=== PATIENT | female | born 1995 | race Caucasian/White ===

== ENCOUNTER 2017-07-14 20:46 | Emergency (ER) | payer OTHER ==
[2017-07-14] MEDS ORDERED: DIPHENHYDRAMINE HCL 50 MG CAPSULE PO ONE (21:43)
[2017-07-14] MEDS ORDERED: FAMOTIDINE 20 MG TABLET PO ONE (21:43)
[2017-07-14] MEDS ORDERED: METHYLPREDNISOLONE INJ 125 MG/2 ML SDV IM ONE (21:43)
--- NOTE | 2017-07-14 21:48 | ER Document Report ---
HPI - HPI Pain Level: 3 Notes: Patient is a 22-year-old female with a history of mental health disorders, asthma who presents to the ED complaining of a rash that started on her arms and legs this evening about a few hours ago. Patient is not sure what caused the rash. She has not eaten any new foods or taken new medications. Patient has not had any travel. Patient is wondering if she is allergic to 1 of the chemicals at work. Patient states that the rash is associated with some itching and soreness. Patient has not had any recent illness. She denies any drug allergies. No other concerns or complaints at this time. Denies any headache, fever, neck pain, changes in vision/speech/mentation/hearing, swelling of the lips/tongue/throat, drooling, hoarseness, URI, sore throat, chest pain, palpitations, syncope, cough, shortness of breath, wheeze, dyspnea, abdominal pain, nausea/vomiting/diarrhea, urinary retention, dysuria, hematuria , loss of control of bowel or bladder, numbness/tingling, muscle paralysis/ weakness, or rash. - ROS Systems Reviewed and Negative: Yes All other systems reviewed and negative - REPRODUCTIVE Reproductive: DENIES: : Past Medical History - Social History Smoking Status: Current Every Day Smoker Family History: None Pulmonary Medical History: Reports: Hx Asthma - as a child Psychiatric Medical History: Reports: Hx Depression Traumatic Medical History: Reports: Hx Fractures - forearm, collarbone - Immunizations Immunizations up to date: Yes Hx Diphtheria, Pertussis, Tetanus Vaccination: Yes Vertical Provider Document - CONSTITUTIONAL Agree With Documented VS: Yes Notes: PHYSICAL EXAMINATION: GENERAL: Well-appearing, well-nourished and in no acute distress. HEAD: Atraumatic, normocephalic. EYES: Pupils equal round and reactive to light, extraocular movements intact, sclera anicteric, conjunctiva are normal. ENT: Nares patent and without discharge. oropharynx clear without exudates. No tonsilar hypertrophy or erythema. Moist mucous membranes. NECK: Normal range of motion, supple without lymphadenopathy LUNGS: Breath sounds clear to auscultation bilaterally and equal. No wheezes rales or rhonchi. HEART: Regular rate and rhythm without murmurs, rubs, gallops. ABDOMEN: Soft, nontender, nondistended abdomen. No guarding, no rebound. No masses appreciated. Normal bowel sounds present. No CVA tenderness bilaterally. Musculoskeletal: FROM to passive/active. Strength 5+/5. Extremities: No cyanosis, clubbing, or edema b/l. Peripheral pulses 2+. Capillary refill less than 3 seconds. NEUROLOGICAL: normal speech, normal gait. Normal sensory, motor exams PSYCH: anxious SKIN: several maculopapular lesions to the arms/legs b/l, non-tender. No abscess , purulence, or discharge. Some areas appear as hives, but most are papular. No distinct pattern. - INFECTION CONTROL TRAVEL OUTSIDE OF THE [place] IN LAST 30 DAYS: No - RESPIRATORY O2 Sat by Pulse Oximetry: 100 Course - Re-evaluation Re-evalutation: 07/14/17 21:46 Patient is an afebrile, well-hydrated, 22-year-old female who presents to the ED with a skin eruption not otherwise specified, possible allergy. Vitals are stable. PE is otherwise unremarkable. Low suspicion for any severe dehydration , sepsis, meningitis, SJS, necrotizing fasciitis, angioedema, respiratory compromise, shock, or other systemic emergent condition at this time. Patient to monitor symptoms closely and seek medical attention for any acute changes. Patient was given Solu-Medrol, Benadryl, and Pepcid today. 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 Return to the ED with any worsening/ concerning symptoms otherwise as reviewed discharge. Patient is in agreement. - Vital Signs Vital signs: Temp Pulse Resp BP Pulse Ox 98.6 F 85 115/69 100 07/14/17 21:29 07/14/17 21:29 07/14/17 21:29 07/14/17 21:29 Discharge - Discharge Clinical Impression: Rash and nonspecific skin eruption Condition: Stable Disposition: HOME, SELF-CARE Additional Instructions: Keep the skin clean Wash with soap and water Tylenol/ibuprofen if needed Triple antibiotic ointment daily if any break in the skin May use over the counter benadryl/steroid cream Take medication as directed Monitor for any worsening symptoms Recheck with your PCM in 2-3 days Consider consult with Dermatology for ongoing/worsening symptoms Return to the ED with any worsening symptoms and/or development of fever, headache, chest pain, palpitations, syncope, shortness of breath, trouble breathing, abdominal pain, n/v/d, abscess, purulent discharge, red streaks, worsening swelling, or other worsening symptoms that are concerning to you. Referrals: JOHN VANG, [ACTIVE STAFF] - Follow up as needed
[2017-07-14 22:07] VITALS: BP 122/67
== END 2017-07-14 22:16 | disposition home or self-care (01) ==
LOC: ER 20:46
DX: R21 Rash and other nonspecific skin eruption (principal); F17.200 Nicotine dependence, unspecified, uncomplicated
CPT/HCPCS: 99282; 96372; J2930

== ENCOUNTER 2017-07-15 13:23 | Emergency (ER) | payer OTHER ==
[2017-07-15] MEDS ORDERED: ALBUTEROL SULFATE 0.083% NEB 2.5 MG/3 ML AMPUL NEB ONE (14:47)
[2017-07-15] MEDS ORDERED: PREDNISONE 20 MG TABLET PO ONE (14:47)
--- NOTE | 2017-07-15 14:53 | ER Document Report ---
ED Skin Rash/Insect Bite/Abscs - General Chief Complaint: Rash Stated Complaint: RASH Time Seen by Provider: 07/15/17 14:33 Mode of Arrival: Ambulatory Information source: Patient Notes: Patient is a 22-year-old female, asthmatic, who presents to the ER today for 1 day history of rash to her legs and arms that is itchy, nausea and shortness of breath. Patient states that all began yesterday. She states that 2 other people at [employer] where she works also have the same exact symptoms. Patient is up-to-date on all of her immunizations except she did not receive the flu shot this year. Patient has been trying her albuterol inhaler at home but states is not helping with the shortness of breath. She has a history of anxiety as well. Patient was seen here yesterday and given medications to help with the rash for possible allergic reaction here in the emergency department but states that the rash is slowly spreading and she was not sent home with anything. She denies any fevers or chills but admits to body aches and some congestion with runny nose last week. TRAVEL OUTSIDE OF THE [place] IN LAST 30 DAYS: No - Related Data Allergies/Adverse Reactions: No Known Allergies Allergy (Verified 07/15/17 13:23) Past Medical History - General Information source: Patient - Social History Smoking Status: Never Smoker Chew tobacco use (# tins/day): No Frequency of alcohol use: None Drug Abuse: None Family History: None Patient has suicidal ideation: No Patient has homicidal ideation: No Pulmonary Medical History: Reports: Hx Asthma - as a child Renal/ Medical History: Denies: Hx Peritoneal Dialysis Psychiatric Medical History: Reports: Hx Depression Traumatic Medical History: Reports: Hx Fractures - forearm, collarbone - Immunizations Immunizations up to date: Yes Hx Diphtheria, Pertussis, Tetanus Vaccination: Yes Review of Systems - Review of Systems Constitutional: See HPI EENT: See HPI Cardiovascular: No symptoms reported Respiratory: See HPI Gastrointestinal: No symptoms reported Genitourinary: No symptoms reported Female Genitourinary: No symptoms reported Musculoskeletal: No symptoms reported Skin: See HPI Hematologic/Lymphatic: No symptoms reported Neurological/Psychological: No symptoms reported Physical Exam - Vital signs Vitals: Temp Pulse Resp BP Pulse Ox 98.8 F 74 18 124/59 L 98 07/15/17 13:35 07/15/17 13:35 07/15/17 13:35 07/15/17 13:35 07/15/17 13:35 - Notes Notes: PHYSICAL EXAMINATION: GENERAL: Anxious appearing, but in no acute distress. HEAD: Atraumatic, normocephalic. EYES: Pupils equal round and reactive to light, extraocular movements intact, sclera anicteric, conjunctiva are normal. ENT: ear canals without erythema or foreign body, TMs pearly velazquez with good bony landmarks, nares patent, oropharynx clear without exudates. Moist mucous membranes. Airway patent NECK: Normal range of motion, supple without lymphadenopathy LUNGS: CTAB and equal. No wheezes rales or rhonchi. HEART: Regular rate and rhythm without murmurs ABDOMEN: Soft, no tenderness. No guarding, no rebound EXTREMITIES: Normal range of motion, no pitting edema. No cyanosis. NEUROLOGICAL: Cranial nerves grossly intact. Normal sensory/motor exams. PSYCH: Anxious appearing SKIN: Warm, Dry, normal turgor, mild erythematous macular rash, nonblanching, to bilateral extremities, all 4 extremities, nontender to palpation Course - Re-evaluation Re-evalutation: 07/15/17 15:42 Lab work reveals a normal white blood cell count and normal platelet count. I will place patient on a steroid medication for her rash and her symptoms and send her home with something for nausea. This is very likely viral in origin as to other people at work also have the same symptoms within a few days. - Vital Signs Vital signs: Temp Pulse Resp BP Pulse Ox 98.8 F 74 18 124/59 L 98 07/15/17 13:35 07/15/17 13:35 07/15/17 13:35 07/15/17 13:35 07/15/17 13:35 - Laboratory Result Diagrams: 07/15/17 15:17 Laboratory results interpreted by me: 07/15/17 15:17 Seg Neutrophils % 84.7 H Lymphocytes % 9.3 L Absolute Neutrophils 8.9 H Discharge - Discharge Clinical Impression: Nausea, Rash and nonspecific skin eruption, SOB (shortness of breath) Condition: Stable Disposition: HOME, SELF-CARE Additional Instructions: +Return immediately for any new or worsening symptoms. Follow up with primary care provider, call tomorrow to make followup appointment. Prescriptions: Prednisone [Deltasone 20 mg Tablet] 3 tab PO DAILY 5 Days tablet Forms: Return to Work
[2017-07-15 15:30] LABS: ABSOLUTE MONOCYTES (AUTO) 0.6 10^3/uL (0.1-1.4); ABSOLUTE NEUT (AUTO) 8.9 10^3/uL (1.7-8.2); BASOPHILS % (AUTO) 0.2 % (0-2); HEMATOCRIT 37.8 % (36.0-47.0); HEMOGLOBIN 13.1 g/dL (12.0-15.5); LYMPHOCYTES % (AUTO) 9.3 % (13-45); MEAN CORPUSCULAR HEMOGLOBIN 28.4 pg (27.0-33.4); MEAN CORPUSCULAR HGB CONC 34.5 g/dL (32.0-36.0); MEAN CORPUSCULAR VOLUME 82 fl (80-97); MONOCYTES % (AUTO) 5.8 % (3-13); PLATELET COUNT 220 10^3/uL (150-450); SEGMENTED NEUTROPHILS % (AUTO) 84.7 % (42-78); TOTAL CELLS COUNTED % (AUTO) 100 %; WHITE BLOOD COUNT 10.5 10^3/uL (4.0-10.5)
[2017-07-15 15:59] VITALS: BP 119/63
== END 2017-07-15 15:55 | disposition home or self-care (01) ==
LOC: ER 13:23
DX: R21 Rash and other nonspecific skin eruption (principal); L29.8 Other pruritus; R11.0 Nausea; J45.909 Unspecified asthma, uncomplicated; R06.02 Shortness of breath
CPT/HCPCS: 94640; 99283; 36415; 85025; J7512

== ENCOUNTER 2017-11-18 19:12 | Emergency (ER) | payer SELFPAY ==
[2017-11-18 19:29] VITALS: BP 113/62
[2017-11-18] MEDS ORDERED: FAMOTIDINE 20 MG TABLET PO ONE (20:21)
[2017-11-18] MEDS ORDERED: DIPHENHYDRAMINE HCL 50 MG CAPSULE PO ONE (20:21)
[2017-11-18] MEDS ORDERED: DIPH/PERTUSS(ACELL)/TETANUS VAC/PF 0.5 ML SYR (>=10YO) IM ONE (20:21)
--- NOTE | 2017-11-18 20:21 | ER Document Report ---
ED Animal Bite - General Chief Complaint: Dog Bite Stated Complaint: DOG BITE Time Seen by Provider: 11/18/17 19:48 Mode of Arrival: Ambulatory Information source: Patient Notes: Patient is a 22-year-old female who presents to the ER today for dog bite to both hands. Patient was breaking up a fight between 2 of her own dogs and states that she got bit in the process. Patient states that both of her dogs are up-to-date on rabies boosters. Patient does not number when her last tetanus was. She states bleeding is controlled but most of the pain is to the left hand where there is an actual small laceration and some swelling. Patient has full range of motion of all of her fingers and no numbness or tingling. She states "I am allergic to pit bull saliva." She then continues to tell me that she owns 3 pit bulls. She tells me that she breaks out her rash whenever the pitbull saliva gets on her. She has not taken anything prior to coming to the emergency department today. TRAVEL OUTSIDE OF THE [place] IN LAST 30 DAYS: No - Related Data Allergies/Adverse Reactions: No Known Allergies Allergy (Verified 07/15/17 13:23) Past Medical History - General Information source: Patient - Social History Smoking Status: Unknown if Ever Smoked Family History: None Pulmonary Medical History: Reports: Hx Asthma - as a child Renal/ Medical History: Denies: Hx Peritoneal Dialysis Psychiatric Medical History: Reports: Hx Depression Traumatic Medical History: Reports: Hx Fractures - forearm, collarbone - Immunizations Immunizations up to date: Yes Hx Diphtheria, Pertussis, Tetanus Vaccination: Yes Review of Systems - Review of Systems Constitutional: No symptoms reported EENT: No symptoms reported Cardiovascular: No symptoms reported Respiratory: No symptoms reported Gastrointestinal: No symptoms reported Genitourinary: No symptoms reported Female Genitourinary: No symptoms reported Musculoskeletal: See HPI Skin: See HPI Hematologic/Lymphatic: No symptoms reported Neurological/Psychological: No symptoms reported Physical Exam - Vital signs Vitals: Temp Pulse Resp BP Pulse Ox 99.3 F 86 20 113/62 97 11/18/17 19:28 11/18/17 19:28 11/18/17 19:28 11/18/17 19:28 11/18/17 19:28 - Notes Notes: PHYSICAL EXAMINATION: GENERAL: Anxious appearing, but in no acute distress. HEAD: Atraumatic, normocephalic. EYES: Pupils equal round and reactive to light, extraocular movements intact, sclera anicteric, conjunctiva are normal. ENT: ear canals without erythema or foreign body, TMs pearly velazquez with good bony landmarks, nares patent, oropharynx clear without exudates. Moist mucous membranes. Airway patent NECK: Normal range of motion, supple without lymphadenopathy LUNGS: CTAB and equal. No wheezes rales or rhonchi. HEART: Regular rate and rhythm without murmurs EXTREMITIES: See skin below, normal range of motion of all fingers and hands, no pitting edema. No cyanosis. NEUROLOGICAL: Cranial nerves grossly intact. Normal sensory/motor exams. PSYCH: Normal mood, normal affect. SKIN: Warm, Dry, normal turgor, mild edema to the dorsal left hand, small, less than 1 cm laceration to the dorsal left hand without bleeding, entirety of left hand tender to palpation, right hand appears normal Course - Re-evaluation Re-evalutation: 11/18/17 23:28 X-ray of the left hand is negative for any acute pathology, patient was given tetanus booster here. Patient will be placed on Augmentin for dog bite, small uncomplicated laceration to the left dorsal hand was cleaned with antiseptic and bandaged. Patient was given Benadryl and Pepcid for her possible impending allergic reaction to the saliva of the dog that she owns. - Vital Signs Vital signs: Temp Pulse Resp BP Pulse Ox 99.3 F 86 20 113/62 97 11/18/17 19:28 11/18/17 19:28 11/18/17 19:28 11/18/17 19:28 11/18/17 19:28 Discharge - Discharge Clinical Impression: Dog bite Qualifiers: Encounter type: initial encounter Qualified Code(s): W54.0XXA - Bitten by dog, initial encounter Condition: Stable Disposition: HOME, SELF-CARE Additional Instructions: Return immediately for any new or worsening symptoms. Follow up with primary care provider, call tomorrow to make followup appointment. Prescriptions: Amox Tr/Potassium Clavulanate [Augmentin 875-125 Tablet] 1 tab PO BID 10 Days tablet Forms: Return to Work
--- NOTE | 2017-11-18 21:10 | RADIOLOGY REPORT (SQ) ---
EXAM DESCRIPTION: HAND LEFT 3 VIEWS COMPLETED DATE/TIME: 11/18/2017 8:52 pm REASON FOR STUDY: dog bite, swelling left hand COMPARISON: None. EXAM PARAMETERS: NUMBER OF VIEWS: Three views. TECHNIQUE: AP, lateral and oblique radiographic images acquired of the left hand. LIMITATIONS: None. FINDINGS: MINERALIZATION: Normal. BONES: No acute fracture or dislocation. No worrisome bone lesions. JOINTS: No effusions. SOFT TISSUES: No soft tissue swelling. No foreign body. OTHER: No other significant finding. IMPRESSION: NEGATIVE STUDY OF THE LEFT HAND. NO RADIOGRAPHIC EVIDENCE OF ACUTE INJURY. TECHNICAL DOCUMENTATION: JOB ID: [id number] [employer]- All Rights Reserved Reading location - IP/workstation name: [email or web address]
== END 2017-11-18 21:59 | disposition home or self-care (01) ==
LOC: ER 19:12
DX: S61.452A Open bite of left hand, initial encounter (principal); W54.0XXA Bitten by dog, initial encounter; Y92.009 Unspecified place in unspecified non-institutional (private) residence as the place of occurrence of the external cause; Z23 Encounter for immunization
CPT/HCPCS: 90471; 90715; 99283

== ENCOUNTER 2018-01-20 07:28 | Emergency (ER) | payer SELFPAY ==
[2018-01-20 07:34] VITALS: BP 116/61
--- NOTE | 2018-01-20 08:41 | ER Document Report ---
HPI - HPI Patient complains to provider of: Skin rash Onset/Duration: Persistent Pain Level: 1 Context: Patient complains of pruritic right foot skin rash for the past week. Patient also reports rash to left shoulder and upper chest area that she has had for 7 months. Patient states the rash to her chest is not pruritic. Patient denies any new foods medications or detergents. Associated Symptoms: Other - Skin rash. denies: Chest pain, Productive cough, Fever, Nausea, Vomiting Exacerbated by: Denies Relieved by: Denies Similar symptoms previously: No Recently seen / treated by doctor: No - ROS ROS below otherwise negative: Yes Systems Reviewed and Negative: Yes All other systems reviewed and negative - CONSTITUTIONAL Constitutional: DENIES: Fever, Chills - NEURO Neurology: DENIES: Headache - GASTROINTESTINAL Gastrointestinal: DENIES: Nausea, Patient vomiting - REPRODUCTIVE Reproductive: DENIES: : - DERM Skin Problems: Rash Past Medical History - General Information source: Patient - Social History Smoking Status: Former Smoker Frequency of alcohol use: Occasional Drug Abuse: Marijuana Occupation: [employer] Lives with: Spouse/Significant other Family History: None Pulmonary Medical History: Reports: Hx Asthma - as a child Renal/ Medical History: Denies: Hx Peritoneal Dialysis Psychiatric Medical History: Reports: Hx Anxiety, Hx Depression Traumatic Medical History: Reports: Hx Fractures - forearm, collarbone Past Surgical History: Reports: Hx Orthopedic Surgery - Immunizations Immunizations up to date: Yes Hx Diphtheria, Pertussis, Tetanus Vaccination: Yes Vertical Provider Document - CONSTITUTIONAL Agree With Documented VS: Yes Exam Limitations: No Limitations General Appearance: WD/WN, No Apparent Distress - INFECTION CONTROL TRAVEL OUTSIDE OF THE [place] IN LAST 30 DAYS: No - HEENT HEENT: Atraumatic, Normal ENT Exam, Normocephalic - NECK Neck: Normal Inspection, Supple - RESPIRATORY Respiratory: Breath Sounds Normal, No Respiratory Distress - CARDIOVASCULAR Cardiovascular: Regular Rate, Regular Rhythm - BACK Back: Normal Inspection - MUSCULOSKELETAL/EXTREMETIES Musculoskeletal/Extremeties: RAN MURPHY - NEURO Level of Consciousness: Awake, Alert, Appropriate Motor/Sensory: No Motor Deficit - DERM Integumentary: Warm, Dry, Rash - Erythematous papular excoriated rash to plantar surface of right foot, patient with additional salmon colored scaling plaques to left upper chest and shoulder area that have coalesced in some areas Course - Vital Signs Vital signs: Temp Pulse Resp BP Pulse Ox 98.6 F 85 16 116/61 98 01/20/18 07:33 01/20/18 07:33 01/20/18 07:33 01/20/18 07:33 01/20/18 07:33 Discharge - Discharge Clinical Impression: Dermatitis, Pityriasis versicolor Condition: Stable Disposition: HOME, SELF-CARE Instructions: Skin Fungus ([facility]), Topical Steroid Cream or Ointment ([facility]) Additional Instructions: Return immediately for any new or worsening symptoms Followup with your primary care provider, call tomorrow to make a followup appointment Follow-up with dermatology for further evaluation Prescriptions: Ketoconazole 1 applic TP DAILY #120 ml Triamcinolone Acetonide [Aristocort 0.1% Cream] 1 applic TP TID #60 gm Referrals[facility] [Provider Group] - Follow up as needed [facility] [place] [Provider Group] - Follow up as needed
== END 2018-01-20 09:26 | disposition home or self-care (01) ==
LOC: ER 07:28
DX: L30.9 Dermatitis, unspecified (principal); B36.0 Pityriasis versicolor
CPT/HCPCS: 99282

== ENCOUNTER 2018-01-30 07:24 | Emergency (ER) | payer SELFPAY ==
[2018-01-30 07:29] VITALS: BP 111/62
--- NOTE | 2018-01-30 08:08 | ER Document Report ---
HPI - HPI Pain Level: 5 Notes: Patient is a 22-year-old female with no significant past medical history presents to the ED complaining of right plantar foot pain 1-2 weeks. Patient states that she was evaluated 2 weeks ago for a rash to the plantar foot which was diagnosed as a fungal rash. Patient states that she had some bubbling forming so she expressed them and noticed some clear fluid. Patient states that since then she noticed increased swelling and pain to the plantar foot. She has not noticed any red streaks, abscess, or purulent discharge. Patient states that she is able to ambulate, but is limping. Denies any drug allergies. No other concerns or complaints. No injury. + tingling with the swelling on lateral plantar foot. Denies any headache, fever, neck pain, URI, sore throat, chest pain, palpitations, syncope, cough, shortness of breath, wheeze, dyspnea, abdominal pain, nausea/vomiting/diarrhea, urinary retention, dysuria, hematuria, loss of control of bowel or bladder, saddle anesthesia, muscle paralysis/weakness, or rash. - ROS Systems Reviewed and Negative: Yes All other systems reviewed and negative - REPRODUCTIVE Reproductive: DENIES: : - MUSCULOSKELETAL Musculoskeletal: REPORTS: Extremity pain - R foot Past Medical History - Social History Smoking Status: Current Some Day Smoker Chew tobacco use (# tins/day): No Frequency of alcohol use: Occasional Drug Abuse: Marijuana Family History: None Patient has suicidal ideation: No Patient has homicidal ideation: No Pulmonary Medical History: Reports: Hx Asthma - as a child Renal/ Medical History: Denies: Hx Peritoneal Dialysis Psychiatric Medical History: Reports: Hx Anxiety, Hx Depression Traumatic Medical History: Reports: Hx Fractures - forearm, collarbone Past Surgical History: Reports: Hx Orthopedic Surgery - Immunizations Immunizations up to date: Yes Hx Diphtheria, Pertussis, Tetanus Vaccination: Yes Vertical Provider Document - CONSTITUTIONAL Agree With Documented VS: Yes Notes: PHYSICAL EXAMINATION: GENERAL: Well-appearing, well-nourished and in no acute distress. LUNGS: Breath sounds clear to auscultation bilaterally and equal. No wheezes rales or rhonchi. HEART: Regular rate and rhythm without murmurs, rubs, gallops. Musculoskeletal: Rt foot/ankle: FROM to passive/active. Strength 5+/5. N/V intact distal. + tenderness to the plantar foot with mild swelling appreciated. No obvious erythema, discharge, streaks, induration, or abscess noted. No bony tenderness of the foot. Achilles intact. Extremities: No cyanosis, clubbing, or edema b/l. Peripheral pulses 2+. Capillary refill less than 3 seconds. NEUROLOGICAL: Normal speech, limping gait. Normal sensory, motor exams PSYCH: Normal mood, normal affect. SKIN: see above. warm, Dry, normal turgor, no rashes or lesions noted. - INFECTION CONTROL TRAVEL OUTSIDE OF THE [place] IN LAST 30 DAYS: No Course - Re-evaluation Re-evalutation: 01/30/18 08:05 Patient is an afebrile, well-hydrated, 22-year-old female who presents to the ED with right plantar foot pain and swelling which I suspect possible infection. Vitals are acceptable without significant tachycardia. PE is otherwise unremarkable for any neurovascular compromise, obvious tendon/ ligament rupture, obvious fracture/dislocation, septic joint. Patient is tolerating p.o. without difficulties and is nontoxic-appearing. Patient did have a skin opening in the area 2 weeks ago as noted in HPI which would allow the introduction of bacteria to that area. There is no point of maximal tenderness, induration, fluctuance, purulence so no incision and drainage is warranted at this time. No other labs or imaging warranted at this time based on H&P. Crutches will be provided. Conservative measures for symptoms, but I will send her home with a prescription for Keflex/bactrim. Recheck with your PCM in 2-3 days. Return to the ED with any worsening/concerning symptoms otherwise as reviewed in discharge. Work note provided. Patient is in agreement. - Vital Signs Vital signs: Temp Pulse Resp BP Pulse Ox 98.9 F 88 14 111/62 98 01/30/18 07:29 01/30/18 07:29 01/30/18 07:29 01/30/18 07:29 01/30/18 07:29 Discharge - Discharge Clinical Impression: Right foot pain Condition: Stable Disposition: HOME, SELF-CARE Additional Instructions: Keep the skin clean Rest, ice, compression, elevation Epsom salt soaks Wash with soap and water Tylenol/ibuprofen if needed Triple antibiotic ointment daily Take medication as directed Monitor for any worsening symptoms Recheck with your PCM in 2-3 days Consider scheduling an appointment with podiatry for further evaluation and management as needed otherwise* Return to the ED with any worsening symptoms and/or development of fever, headache, chest pain, palpitations, syncope, shortness of breath, trouble breathing, abdominal pain, n/v/d, abscess, purulent discharge, red streaks, worsening swelling, or other worsening symptoms that are concerning to you. Prescriptions: Cephalexin Monohydrate [Keflex 500 mg Capsule] 500 mg PO TID #30 capsule Sulfamethoxazole/Trimethoprim [Bactrim Ds Tablet] 1 each PO BID #20 tablet Forms: Smoking Cessation Education, Return to Work Referrals: DOUG MAHONEY DPM [ACTIVE STAFF] - Follow up as needed
== END 2018-01-30 08:30 | disposition home or self-care (01) ==
LOC: ER 07:24
DX: M79.671 Pain in right foot (principal); R21 Rash and other nonspecific skin eruption; F17.200 Nicotine dependence, unspecified, uncomplicated
CPT/HCPCS: 99283

== ENCOUNTER 2018-09-22 15:43 | Emergency (ER) | payer SELFPAY ==
--- NOTE | 2018-09-22 16:02 | ER Document Report ---
ED Medical Screen (RME) - General Chief Complaint: Suicidal Ideation Stated Complaint: PSYCH CONSULT Time Seen by Provider: 09/22/18 16:00 Mode of Arrival: Ambulatory Information source: Patient Notes: Patient presents reporting suicidal ideation with a plan. Patient states that she does have a plan that she has used for years ago. Patient states she has had this consistent plan since then. Patient states she had been on Zoloft for 4 years although her mother refused to pay for the medications that she had a come off of the medication. Patient states that her mother is her trigger and that she recently moved in with her mother in July of this year after receiving divorce papers. I have greeted and performed a rapid initial assessment of this patient. A comprehensive ED assessment and evaluation of the patient, analysis of test results and completion of the medical decision making process will be conducted by additional ED providers. TRAVEL OUTSIDE OF THE [place] IN LAST 30 DAYS: No - Related Data Allergies/Adverse Reactions: No Known Allergies Allergy (Verified 09/22/18 15:46) Past Medical History Pulmonary Medical History: Reports: Hx Asthma - as a child Renal/ Medical History: Denies: Hx Peritoneal Dialysis Psychiatric Medical History: Reports: Hx Anxiety, Hx Depression Traumatic Medical History: Reports: Hx Fractures - forearm, collarbone Past Surgical History: Reports: Hx Orthopedic Surgery - Immunizations Immunizations up to date: Yes Hx Diphtheria, Pertussis, Tetanus Vaccination: Yes Physical Exam - Vital signs Vitals: Temp Pulse Resp BP Pulse Ox 98.5 F 97 16 117/70 98 09/22/18 15:50 09/22/18 15:50 09/22/18 15:50 09/22/18 15:50 09/22/18 15:50 - Psychological Associated symptoms: Normal affect, Other - Patient with suicidal ideation with plan. No: Combative, Uncooperative Course - Vital Signs Vital signs: Temp Pulse Resp BP Pulse Ox 98.5 F 97 16 117/70 98 09/22/18 15:50 09/22/18 15:50 09/22/18 15:50 09/22/18 15:50 09/22/18 15:50
[2018-09-22 16:33] LABS: APPEARANCE,URINE SLIGHTLY-CLOUDY; BILIRUBIN,URINE NEGATIVE (NEGATIVE); COLOR,URINE YELLOW; GLUCOSE, URINE NEGATIVE (NEGATIVE); KETONES,URINE 20 mg/dL (NEGATIVE); LEUKOCYTE ESTERASE,URINE SMALL (NEGATIVE); NITRITE,URINE NEGATIVE (NEGATIVE); PROTEIN,URINE NEGATIVE (NEGATIVE); URINE SPECIFIC GRAVITY 1.021; UROBILINOGEN,URINE NEGATIVE mg/dL (<2.0)
--- NOTE | 2018-09-22 16:36 | PSYCHOLOGICAL NOTE ---
Psych Note - Psych Note Date seen by psych provider: 09/22/18 Time seen by psych provider: 16:17 - Chart review only Psych Note: Reason for Consult: SI with history Contact Permissions: Unknown Patient is a 23 year old female who presented to the ED today as a voluntary walk in for suicidal ideation with a plan, same plan as used in the past (never stated what that plan was). All of the following information comes from medical documentation. She stated she is supposed to be on Zoloft (has not been for the past 4 years) but mother would not fill it. She noted mother is a trigger for her, she just moved back in with mother in July due to divorce. Review of chart revealed patient was seen by [facility] on 01/31/19 for similar etiology. She noted a Hx of self injurious behavior (SIB) via cutting. At that time she had an argument with mother and grandmother. Grandmother noted patient had a problem with authority and was a good liar. She was supposed to be on Zoloft then. She was rescinded and discharged home with grandmother and to follow up with outpatient provider. UDS has been negative for all substances in the past. Discussion with attending ED Physician revealed patient denied any medications for 4 years since mother would not fill it (Zoloft), she admitted to using marijuana to self medicate while living on the [facility] but has not since being back in [place] and she would just like to sleep/rest. Attending nurse noted patient is transgender and sexual preference is male. Diagnosis: 311 (F32.9) Unspecified Depressive Disorder by History R/O 296.80 (F31.9) Unspecified Bipolar and Related Disorder Medication recommendations made by the psychiatric medical provider, Jerardo Riddle, includes: Add Zyprexa 5MG twice a day for mood stabilization/impulse control Add Cogentin 1MG daily to curb tremor side effects often associated with antipsychotic medications Impression/Plan: Patient to be fully assessed by [facility] tomorrow (09/23/18). Today was trying to get medication recommendation to aid with stabilization and a possible discharge for tomorrow. Consulted with Dr. Dempsey regarding the management and care of patient. ED Physician made aware of recommendations.
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
[2018-09-22 16:48] LABS: URINE AMPHETAMINES SCREEN NEGATIVE; URINE BARBITURATES SCREEN NEGATIVE; URINE BENZODIAZEPINES SCREEN NEGATIVE; URINE COCAINE SCREEN NEGATIVE; URINE MARIJUANA (THC) SCREEN NEGATIVE; URINE METHADONE SCREEN NEGATIVE; URINE PHENCYCLIDINE SCREEN NEGATIVE
[2018-09-22] MEDS ORDERED: BENZTROPINE MESYLATE 1 MG TABLET PO SCH (17:00)
[2018-09-22] MEDS: OLANZAPINE 5 MG TABLET PO SCH (17:17)
[2018-09-22] MEDS ORDERED: BENZTROPINE MESYLATE 1 MG TABLET PO ONE (17:45)
[2018-09-22 17:58] LABS: ABSOLUTE EOSINOPHILS # (AUTO) 0.3 10^3/uL (0.0-0.6); ABSOLUTE LYMPHOCYTES (AUTO) 1.8 10^3/uL (0.5-4.7); ABSOLUTE MONOCYTES (AUTO) 0.7 10^3/uL (0.1-1.4); ABSOLUTE NEUT (AUTO) 3.1 10^3/uL (1.7-8.2); BASOPHILS % (AUTO) 0.6 % (0-2); EOSINOPHILS % (AUTO) 4.4 % (0-6); HEMATOCRIT 38.6 % (36.0-47.0); HEMOGLOBIN 13.3 g/dL (12.0-15.5); LYMPHOCYTES % (AUTO) 30.8 % (13-45); MEAN CORPUSCULAR HEMOGLOBIN 28.1 pg (27.0-33.4); MEAN CORPUSCULAR HGB CONC 34.4 g/dL (32.0-36.0); MEAN CORPUSCULAR VOLUME 82 fl (80-97); MONOCYTES % (AUTO) 11.5 % (3-13); PLATELET COUNT 209 10^3/uL (150-450); RED BLOOD COUNT 4.72 10^6/uL (3.72-5.28); RED CELL DISTRIBUTION WIDTH 13.2 % (11.5-14.0); SEGMENTED NEUTROPHILS % (AUTO) 52.7 % (42-78); TOTAL CELLS COUNTED % (AUTO) 100 %; WHITE BLOOD COUNT 5.8 10^3/uL (4.0-10.5)
[2018-09-22 18:19] LABS: ALANINE AMINOTRANSFERASE 31 U/L (9-52); ALBUMIN 4.4 g/dL (3.5-5.0); ALKALINE PHOSPHATASE 56 U/L (38-126); ANION GAP 9 (5-19); ASPARTATE AMINO TRANSFERASE 24 U/L (14-36); BILIRUBIN,DIRECT 0.2 mg/dL (0.0-0.4); BILIRUBIN,TOTAL 0.4 mg/dL (0.2-1.3); BLOOD UREA NITROGEN 11 mg/dL (7-20); CARBON DIOXIDE 26 mmol/L (22-30); CHLORIDE 105 mmol/L (98-107); GLUCOSE 87 mg/dL (75-110); POTASSIUM 4.2 mmol/L (3.6-5.0); TOTAL PROTEIN 7.3 g/dL (6.3-8.2)
[2018-09-22 18:20] LABS: ACETAMINOPHEN < 10 ug/mL (10-30); ALCOHOL < 10 mg/dL (NONE DETECTED); SALICYLATE < 1.0 mg/dL (2.0-20.0)
--- NOTE | 2018-09-22 20:56 | EKG REPORT ---
SEVERITY:- NORMAL ECG - SINUS RHYTHM : Confirmed by: Birgit Rubio MD 22-Sep-2018 20:54:11
[2018-09-23] MEDS: OLANZAPINE 5 MG TABLET PO SCH (09:42)
[2018-09-23] MEDS ORDERED: BENZTROPINE MESYLATE 1 MG TABLET PO SCH (10:00)
--- NOTE | 2018-09-23 10:11 | ER Document Report ---
Doctor's Note Notes: 09/23/18 10:10 Patient seen and evaluated. She is resting comfortably. She has no immediate complaints. Patient does state that she feels frustrated when she is around her mother. Her mother is definitely a trigger of her anger. She is currently living with her mother for the next month and a half at which time she plans on moving out with her boyfriend. She states her mother and her argue frequently but only have big arguments like this a few times a year. She states that she feels like she would rather at her own hands then allow her mother to kill her. She currently states that she feels safe at home and that her mother has never physically harmed her. She denies wanting to and states that she has a dog and a boyfriend that she loves. She states she only thinks about suicide as a last resort when she is having arguments with her mother. I did recommend patient trying to live at a residential in the meantime to avoid contact with her mother however she states she will not leave her service dog, which is undocumented, behind she is not currently actively suicidal. She has no specific plan of hurting herself. I do feel she is not a risk to her own personal safety at this point in time. She is aware of options including the residential and returning to the emergency room. Likely plan to discharge home today pending final psych evaluation.
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
[2018-09-23 14:46] VITALS: BP 100/75
== END 2018-09-23 14:46 | disposition home or self-care (01) ==
LOC: ER 15:43
DX: F32.9 Major depressive disorder, single episode, unspecified (principal); F31.9 Bipolar disorder, unspecified
CPT/HCPCS: 36415; 80053; 80307; 81001; 84703; 85025; 93005; 93010; 99285

== ENCOUNTER 2018-12-04 01:28 | Emergency (ER) | payer SELFPAY ==
[2018-12-04] MEDS ORDERED: NORMAL SALINE 1000 ML 1,000 ML IV PRN (01:48)
[2018-12-04] MEDS ORDERED: ONDANSETRON HCL INJ/PF 4 MG/2 ML SDV IV ONE (01:48)
--- NOTE | 2018-12-04 01:48 | ER Document Report ---
ED Medical Screen (RME) - General Chief Complaint: Nausea/Vomiting/Diarrhea Stated Complaint: VOMITING Primary Care Provider: ALURI TONEY [Primary Care Provider] - Follow up as needed TRAVEL OUTSIDE OF THE [place] IN LAST 30 DAYS: No - HPI Notes: 12/04/18 01:47 Patient is a 23-year-old female with no significant past medical history aside from IBS who presents complaining of nausea, vomiting, diarrhea that began 4 days ago. Patient states that she has been having trouble keeping anything down orally. She has had watery diarrhea associated as well. No recent antibiotics or distance travel. Denies drug allergies. Patient states that she does have some upper and lower abdominal pains intermittently. No surgical history to her abdomen. Denies DELGADO, fever, neck pain, URI, CP, SOB, dysuria, or rash. I have treated and performed a rapid initial assessment of this patient. A comprehensive ED assessment and evaluation of the patient, analysis of test results and completion of medical decision making process will be conducted by additional ED providers. PHYSICAL EXAMINATION: GENERAL: Well-appearing, well-nourished and in no acute distress. A&Ox4. Answers questions appropriately. LUNGS: Breath sounds clear to auscultation bilaterally and equal. No wheezes rales or rhonchi. HEART: Regular rate and rhythm without murmurs, rubs, gallops. ABDOMEN: Soft, nondistended abdomen. No guarding, no rebound. Normal bowel sounds present. No CVA tenderness bilaterally. very mild generalized tenderness (cannot elicit thorough abd exam w/o bed, however). - Related Data Allergies/Adverse Reactions: No Known Allergies Allergy (Verified 09/22/18 15:46) Past Medical History Pulmonary Medical History: Reports: Hx Asthma - as a child Renal/ Medical History: Denies: Hx Peritoneal Dialysis Psychiatric Medical History: Reports: Hx Anxiety, Hx Borderline Personality Disorder, Hx Depression Traumatic Medical History: Reports: Hx Fractures - forearm, collarbone Past Surgical History: Reports: Hx Orthopedic Surgery - Immunizations Immunizations up to date: Yes Hx Diphtheria, Pertussis, Tetanus Vaccination: Yes Physical Exam - Vital signs Vitals: Temp Pulse Resp BP Pulse Ox 97.9 F 75 15 93/58 L 99 12/04/18 01:36 12/04/18 01:36 12/04/18 01:36 12/04/18 01:36 12/04/18 01:36 Course - Vital Signs Vital signs: Temp Pulse Resp BP Pulse Ox 97.9 F 75 15 93/58 L 99 12/04/18 01:36 12/04/18 01:36 12/04/18 01:36 12/04/18 01:36 12/04/18 01:36 Doctor's Discharge - Discharge Referrals: LOCALMD,NO [Primary Care Provider] - Follow up as needed
[2018-12-04 02:33] LABS: ABSOLUTE EOSINOPHILS # (AUTO) 0.2 10^3/uL (0.0-0.6); ABSOLUTE LYMPHOCYTES (AUTO) 2.2 10^3/uL (0.5-4.7); ABSOLUTE MONOCYTES (AUTO) 0.5 10^3/uL (0.1-1.4); ABSOLUTE NEUT (AUTO) 3.6 10^3/uL (1.7-8.2); BASOPHILS % (AUTO) 0.5 % (0-2); HEMATOCRIT 40.1 % (36.0-47.0); HEMOGLOBIN 13.4 g/dL (12.0-15.5); LYMPHOCYTES % (AUTO) 34.1 % (13-45); MEAN CORPUSCULAR HEMOGLOBIN 27.8 pg (27.0-33.4); MEAN CORPUSCULAR HGB CONC 33.4 g/dL (32.0-36.0); MEAN CORPUSCULAR VOLUME 83 fl (80-97); MONOCYTES % (AUTO) 7.7 % (3-13); PLATELET COUNT 223 10^3/uL (150-450); RED BLOOD COUNT 4.82 10^6/uL (3.72-5.28); RED CELL DISTRIBUTION WIDTH 13.2 % (11.5-14.0); SEGMENTED NEUTROPHILS % (AUTO) 54.7 % (42-78); TOTAL CELLS COUNTED % (AUTO) 100 %; WHITE BLOOD COUNT 6.6 10^3/uL (4.0-10.5)
[2018-12-04 02:57] LABS: ALANINE AMINOTRANSFERASE 19 U/L (9-52); ALBUMIN 4.4 g/dL (3.5-5.0); ALKALINE PHOSPHATASE 47 U/L (38-126); ANION GAP 7 (5-19); ASPARTATE AMINO TRANSFERASE 21 U/L (14-36); BILIRUBIN,DIRECT 0.2 mg/dL (0.0-0.4); BILIRUBIN,TOTAL 0.2 mg/dL (0.2-1.3); BLOOD UREA NITROGEN 8 mg/dL (7-20); CALCIUM 9.3 mg/dL (8.4-10.2); CARBON DIOXIDE 28 mmol/L (22-30); CHLORIDE 106 mmol/L (98-107); GLUCOSE 85 mg/dL (75-110); LIPASE 109.2 U/L (23-300); SODIUM 141.4 mmol/L (137-145); TOTAL PROTEIN 6.8 g/dL (6.3-8.2)
[2018-12-04] MEDS ORDERED: ONDANSETRON ODT 4 MG TAB (6 TAB/ER DISP) PO PRN (04:03)
[2018-12-04] MEDS ORDERED: KETOROLAC TROMETHAMINE INJ/PF 30 MG/1 ML SDV IV ONE (04:06)
--- NOTE | 2018-12-04 04:06 | ER Document Report ---
ED General - General Chief Complaint: Nausea/Vomiting/Diarrhea Stated Complaint: VOMITING Time Seen by Provider: 12/04/18 01:49 Primary Care Provider: LAURI TONEY [NO LOCAL MD] - Follow up as needed Notes: Patient is a 23-year-old female with medical history of irritable bowel syndrome presents complaining of 4 days of nausea, vomiting, diarrhea and abdominal cramping. States that her symptoms started gradually, have been relatively unchanged since onset. Regards him as being severe. No exacerbating or alleviating factors though she does note that eating food seems to trigger her to vomit. She has been able to tolerate fluids without difficulty. States that she had subjective fever but has not recorded a fever. Her mother is ill with similar symptoms. Denies history of similar symptoms in the past. Denies focal abdominal pain. No syncope, headache, neck pain or shortness of breath. Denies a history of abdominal surgeries. Has not seen her primary care physician regarding today's concerns. TRAVEL OUTSIDE OF THE [place] IN LAST 30 DAYS: No - Related Data Allergies/Adverse Reactions: No Known Allergies Allergy (Verified 09/22/18 15:46) Past Medical History - General Information source: Patient - Social History Smoking Status: Current Some Day Smoker Frequency of alcohol use: Occasional Drug Abuse: None Lives with: Family Family History: Reviewed & Not Pertinent Patient has suicidal ideation: No Patient has homicidal ideation: No Pulmonary Medical History: Reports: Hx Asthma - as a child Renal/ Medical History: Denies: Hx Peritoneal Dialysis Psychiatric Medical History: Reports: Hx Anxiety, Hx Borderline Personality Disorder, Hx Depression Traumatic Medical History: Reports: Hx Fractures - forearm, collarbone Past Surgical History: Reports: Hx Orthopedic Surgery - Immunizations Immunizations up to date: Yes Hx Diphtheria, Pertussis, Tetanus Vaccination: Yes Review of Systems - Review of Systems Notes: Constitutional: Negative for fever. HENT: Negative for sore throat. Eyes: Negative for visual changes. Cardiovascular: Negative for chest pain. Respiratory: Negative for shortness of breath. Gastrointestinal: Positive for abdominal cramping, nausea, vomiting and diarrhea Genitourinary: Negative for dysuria. Musculoskeletal: Negative for back pain. Skin: Negative for rash. Neurological: Negative for headaches, weakness or numbness. 10 point ROS negative except as marked above and in HPI. Physical Exam - Vital signs Vitals: Temp Pulse Resp BP Pulse Ox 97.9 F 75 15 93/58 L 99 12/04/18 01:36 12/04/18 01:36 12/04/18 01:36 12/04/18 01:36 12/04/18 01:36 Interpretation: Hypotensive Notes: PHYSICAL EXAMINATION: GENERAL: Well-appearing, well-nourished and in no acute distress. HEAD: Atraumatic, normocephalic. EYES: Pupils equal round and reactive to light, extraocular movements intact, sclera anicteric, conjunctiva are normal. ENT: nares patent, oropharynx clear without exudates. Moist mucous membranes. NECK: Normal range of motion, supple without lymphadenopathy LUNGS: Breath sounds clear to auscultation bilaterally and equal. No wheezes rales or rhonchi. HEART: Regular rate and rhythm without murmurs ABDOMEN: Soft, nontender, normoactive bowel sounds. No guarding, no rebound. No masses appreciated. EXTREMITIES: Normal range of motion, no pitting or edema. No cyanosis. NEUROLOGICAL: No focal neurological deficits. Moves all extremities spontaneously and on command. PSYCH: Normal mood, normal affect. SKIN: Warm, Dry, normal turgor, no rashes or lesions noted. Course - Re-evaluation Re-evalutation: 12/04/18 04:05 Presentation of an overall well-appearing patient in no acute distress with complaints of nausea, vomiting, diarrhea. Initial blood pressure was slightly soft although this did completely resolve after receiving IV fluids. Patient has no abdominal tenderness on exam and specifically no tenderness in the RLQ, LLQ, RUQ. Able to tolerate oral intake here in the emergency department. Low clinical suspicion for any acute life-threatening etiology based on exam and history including acute cholecystitis, SBO, appendicitis, nephrolithiasis, or pylonephritis. CMP without evidence of acute hepatitis or significant dehydration. At this time will discharge with return precautions and follow-up recommendations. Verbal discharge instructions given a the bedside and opportunity for questions given. Medication warnings reviewed. Patient is in agreement with this plan and has verbalized understanding of return precautions and the need for primary care follow-up in the next 24-72 hours. - Vital Signs Vital signs: Temp Pulse Resp BP Pulse Ox 97.9 F 75 15 93/58 L 99 12/04/18 01:36 12/04/18 01:36 12/04/18 01:36 12/04/18 01:36 12/04/18 01:36 - Laboratory Result Diagrams: 12/04/18 02:05 12/04/18 02:05 Discharge - Discharge Clinical Impression: Nausea vomiting and diarrhea, Abdominal cramping, Dehydration Condition: Good Disposition: HOME, SELF-CARE Additional Instructions: Your symptoms are likely due to a viral illness and should resolve in the next several days. You can take [id number] loperamide also known as Imodium as needed for diarrhea per box instructions. Continue to stay hydrated with plenty of solution such as Gatorade or Pedialyte. You are being prescribed Zofran to take as needed for nausea and vomiting. Please return if you develop severe ab dominal pain, pass out, become unable to tolerate any oral fluids for 12 more hours, or any other symptoms that are concerning to you. Referrals: LOCALMD,NO [NO LOCAL MD] - Follow up as needed
[2018-12-04 04:38] VITALS: BP 94/52
== END 2018-12-04 04:42 | disposition home or self-care (01) ==
LOC: ER 01:28
DX: R11.2 Nausea with vomiting, unspecified (principal); R19.7 Diarrhea, unspecified; F17.200 Nicotine dependence, unspecified, uncomplicated; E86.0 Dehydration; R10.9 Unspecified abdominal pain
CPT/HCPCS: 99284; 96361; 96374; 96375; 36415; 83690; 84703; 85025; 80053; J1885; J2405; J7030

== ENCOUNTER 2019-03-02 14:52 | Emergency (ER) | payer SELFPAY ==
[2019-03-02] MEDS ORDERED: ACETAMINOPHEN 325 MG TABLET PO ONE (15:06)
[2019-03-02] MEDS ORDERED: NORMAL SALINE 1000 ML 2,300 ML IV ONE (15:06)
--- NOTE | 2019-03-02 15:12 | ER Document Report ---
ED Medical Screen (RME) - General Chief Complaint: Flank Pain Stated Complaint: FLANK PAIN Time Seen by Provider: 03/02/19 15:06 Mode of Arrival: Wheelchair Information source: Patient Notes: Patient presents complaining of right flank pain for the past 3 days with nausea. Patient with fever here today. Patient denies any vomiting diarrhea vaginal bleeding or urinary symptoms. I have greeted and performed a rapid initial assessment of this patient. A comprehensive ED assessment and evaluation of the patient, analysis of test results and completion of the medical decision making process will be conducted by additional ED providers. TRAVEL OUTSIDE OF THE [place] IN LAST 30 DAYS: No - Related Data Allergies/Adverse Reactions: bees Allergy (Uncoded 03/02/19 15:03) sweet potaoes Allergy (Uncoded 03/02/19 15:03) Past Medical History - Social History Chew tobacco use (# tins/day): No Frequency of alcohol use: None Drug Abuse: None Pulmonary Medical History: Reports: Hx Asthma - as a child Renal/ Medical History: Denies: Hx Peritoneal Dialysis Psychiatric Medical History: Reports: Hx Anxiety, Hx Borderline Personality Disorder, Hx Depression Traumatic Medical History: Reports: Hx Fractures - forearm, collarbone Past Surgical History: Reports: Hx Orthopedic Surgery - Immunizations Immunizations up to date: Yes Hx Diphtheria, Pertussis, Tetanus Vaccination: Yes Physical Exam - Vital signs Vitals: Temp Pulse Resp BP Pulse Ox 100.9 F H 124 H 16 93/50 L 97 03/02/19 14:55 03/02/19 14:55 03/02/19 14:55 03/02/19 14:55 03/02/19 14:55 - Back Back: CVA tenderness - Right Course - Re-evaluation Re-evalutation: 03/02/19 15:14 Patient tachycardic and febrile and appears to be hypotensive with blood pressure 90s over 60s, review of patient's previous ER visits demonstrates that her blood pressure typically does run in this range. - Vital Signs Vital signs: Temp Pulse Resp BP Pulse Ox 100.9 F H 124 H 16 93/50 L 97 03/02/19 14:55 03/02/19 14:55 03/02/19 14:55 03/02/19 14:55 03/02/19 14:55
--- NOTE | 2019-03-02 15:43 | RADIOLOGY REPORT (SQ) ---
EXAM DESCRIPTION: CHEST 2 VIEWS COMPLETED DATE/TIME: 03/02/2019 3:35 pm REASON FOR STUDY: fever COMPARISON: None. EXAM PARAMETERS: NUMBER OF VIEWS: two views TECHNIQUE: Digital Frontal and Lateral radiographic views of the chest acquired. RADIATION DOSE: NA LIMITATIONS: none FINDINGS: LUNGS AND PLEURA: No opacities, masses or pneumothorax. No pleural effusion. MEDIASTINUM AND HILAR STRUCTURES: No masses or contour abnormalities. HEART AND VASCULAR STRUCTURES: Heart normal size. No evidence for failure. BONES: No acute findings. HARDWARE: None in the chest. OTHER: No other significant finding. IMPRESSION: NO ACUTE RADIOGRAPHIC FINDING IN THE CHEST. TECHNICAL DOCUMENTATION: JOB ID: [id number] [email or web address]- All Rights Reserved Reading location - IP/workstation name: [email or web address]
[2019-03-02 16:18] LABS: ABSOLUTE LYMPHOCYTES (AUTO) 0.7 10^3/uL (0.5-4.7); ABSOLUTE MONOCYTES (AUTO) 0.6 10^3/uL (0.1-1.4); ABSOLUTE NEUT (AUTO) 6.7 10^3/uL (1.7-8.2); BASOPHILS % (AUTO) 0.2 % (0-2); EOSINOPHILS % (AUTO) 0.1 % (0-6); HEMATOCRIT 39.7 % (36.0-47.0); HEMOGLOBIN 13.4 g/dL (12.0-15.5); LYMPHOCYTES % (AUTO) 8.7 % (13-45); MEAN CORPUSCULAR HEMOGLOBIN 28.2 pg (27.0-33.4); MEAN CORPUSCULAR HGB CONC 33.8 g/dL (32.0-36.0); MEAN CORPUSCULAR VOLUME 83 fl (80-97); PLATELET COUNT 183 10^3/uL (150-450); RED BLOOD COUNT 4.77 10^6/uL (3.72-5.28); RED CELL DISTRIBUTION WIDTH 12.4 % (11.5-14.0); TOTAL CELLS COUNTED % (AUTO) 100 %
[2019-03-02 16:30] LABS: INTERNATIONAL RATION (INR) 1.12; PROTHROMBIN TIME 14.4 SEC (11.4-15.4)
[2019-03-02 16:34] LABS: ALBUMIN 4.3 g/dL (3.5-5.0); ALKALINE PHOSPHATASE 59 U/L (38-126); ANION GAP 12 (5-19); ASPARTATE AMINO TRANSFERASE 21 U/L (14-36); BILIRUBIN,DIRECT 0.2 mg/dL (0.0-0.4); BILIRUBIN,TOTAL 0.7 mg/dL (0.2-1.3); BLOOD UREA NITROGEN 7 mg/dL (7-20); CALCIUM 9.4 mg/dL (8.4-10.2); CARBON DIOXIDE 26 mmol/L (22-30); CHLORIDE 103 mmol/L (98-107); GLUCOSE 101 mg/dL (75-110); POTASSIUM 4.2 mmol/L (3.6-5.0)
[2019-03-02 20:24] LABS: APPEARANCE,URINE CLOUDY; BILIRUBIN,URINE NEGATIVE (NEGATIVE); COLOR,URINE YELLOW; GLUCOSE, URINE NEGATIVE (NEGATIVE); KETONES,URINE 20 mg/dL (NEGATIVE); LEUKOCYTE ESTERASE,URINE LARGE (NEGATIVE); NITRITE,URINE POSITIVE (NEGATIVE); PROTEIN,URINE 30 mg/dL (NEGATIVE); URINE SPECIFIC GRAVITY 1.015; UROBILINOGEN,URINE NEGATIVE mg/dL (<2.0)
[2019-03-02] MEDS ORDERED: ACETAMINOPHEN 325 MG TABLET ONE (20:26)
[2019-03-02] MEDS ORDERED: MORPHINE SULFATE 10 MG/ML INJ IV ONE (20:57)
[2019-03-02] MEDS ORDERED: ONDANSETRON HCL INJ/PF 4 MG/2 ML SDV IV ONE (20:57)
[2019-03-02] MEDS ORDERED: CEFTRIAXONE INJ 1000 MG VIAL IV ONE (20:58)
--- NOTE | 2019-03-02 21:04 | ER Document Report ---
ED GI/ - General Chief Complaint: Flank Pain Stated Complaint: FLANK PAIN Time Seen by Provider: 03/02/19 15:06 Mode of Arrival: Wheelchair TRAVEL OUTSIDE OF THE [place] IN LAST 30 DAYS: No - HPI Notes: 03/02/19 21:01 This is a 23-year-old female who presents today with a complaint of sudden onset colicky right flank pain that started 2 days ago. Patient states she has not felt well for the past few days. She describes urinary frequency and urgency. She also had a fever earlier today. She denies any cough or congestion. She describes her symptoms as moderate. Pain is worse with palpation. - Related Data Allergies/Adverse Reactions: bees Allergy (Uncoded 03/02/19 15:03) sweet potaoes Allergy (Uncoded 03/02/19 15:03) Past Medical History - General Information source: Patient - Social History Smoking Status: Current Every Day Smoker Chew tobacco use (# tins/day): No Frequency of alcohol use: None Drug Abuse: None Family History: Reviewed & Not Pertinent Patient has suicidal ideation: No Patient has homicidal ideation: No Pulmonary Medical History: Reports: Hx Asthma - as a child Renal/ Medical History: Denies: Hx Peritoneal Dialysis Psychiatric Medical History: Reports: Hx Anxiety, Hx Borderline Personality Disorder, Hx Depression Traumatic Medical History: Reports: Hx Fractures - forearm, collarbone Past Surgical History: Reports: Hx Orthopedic Surgery - Immunizations Immunizations up to date: Yes Hx Diphtheria, Pertussis, Tetanus Vaccination: Yes Review of Systems - Review of Systems Constitutional: Fever Cardiovascular: denies: Chest pain, Palpitations Gastrointestinal: Nausea. denies: Diarrhea, Vomiting Genitourinary: Burning, Dysuria, Frequency, Flank pain, Urgency Neurological/Psychological: denies: Headaches -: Yes All other systems reviewed and negative Physical Exam - Vital signs Vitals: Temp Pulse Resp BP Pulse Ox 100.9 F H 124 H 16 93/50 L 97 03/02/19 14:55 03/02/19 14:55 03/02/19 14:55 03/02/19 14:55 03/02/19 14:55 - General General appearance: Appears well, Alert - HEENT Head: Normocephalic, Atraumatic Eyes: Normal Pupils: PERRL - Respiratory Respiratory status: No respiratory distress Chest status: Nontender Breath sounds: Normal Chest palpation: Normal - Cardiovascular Rhythm: Tachycardia Heart sounds: Normal auscultation Murmur: No - Abdominal Inspection: Normal Distension: No distension Bowel sounds: Normal Tenderness: Tender - There is right CVA tenderness.. No: McBurney's point, De Paz's sign, Guarding, Rebound Organomegaly: No organomegaly - Back Back: Nontender, CVA tenderness - Neurological Neuro grossly intact: Yes Cognition: Normal Orientation: AAOx4 [place] Coma Scale Eye Opening: Spontaneous [place]un Coma Scale Verbal: Oriented [place] Coma Scale Motor: Obeys Commands [place] Coma Scale Total: 15 Speech: Normal Motor strength normal: LUE, RUE, LLE, RLE Sensory: Normal - Psychological Associated symptoms: Normal affect, Normal mood - Skin Skin Temperature: Warm Skin Moisture: Dry Skin Color: Normal Course - Re-evaluation Re-evalutation: 03/02/19 21:03 Differential diagnosis includes pyelonephritis versus UTI versus renal colic versus sacroiliitis. Given fever and tachycardia, will check a lactate to rule out early sepsis. Will hydrate patient. Will get CT scan scan. 03/02/19 22:48 Patient reevaluated. She is doing well. She is enjoying her chicken nuggets from [employer]. Looks well. Labs and imaging reviewed and discussed. She is hemodynamically stable. Not vomiting. She can be managed as an outpatient. I will put her on Keflex for pyelonephritis. Follow-up discussed with patient. She understands. - Vital Signs Vital signs: Temp Pulse Resp BP Pulse Ox 98.7 F 124 H 19 94/63 L 99 03/02/19 22:17 03/02/19 14:55 03/02/19 22:01 03/02/19 22:01 03/02/19 22:01 - Laboratory Result Diagrams: 03/02/19 16:02 03/02/19 16:02 Laboratory results interpreted by me: 03/02/19 03/02/19 16:02 18:13 Lymph % (Auto) 8.7 L Seg Neutrophils % 83.0 H Urine Protein 30 H Urine Ketones 20 H Urine Blood SMALL H Urine Nitrite POSITIVE H Ur Leukocyte Esterase LARGE H Discharge - Discharge Clinical Impression: Acute pyelonephritis Condition: Good Disposition: HOME, SELF-CARE Instructions: Antibiotic Therapy ([facility]), Pyelonephritis ([facility]) Additional Instructions: Return if fever, persistent vomiting, worse or concerns. Prescriptions: Cephalexin Monohydrate [Keflex 500 mg Capsule] 500 mg PO TID 10 Days #30 capsule Naproxen 500 mg PO BID PRN #14 tablet PRN Reason: Ondansetron [Zofran Odt 4 mg Tablet] 1 - 2 tab PO Q4H PRN #15 tab.rapdis PRN Reason: For Nausea/Vomiting Referrals: [facility] [NO LOCAL MD] - Follow up in 3-5 days
--- NOTE | 2019-03-02 22:04 | RADIOLOGY REPORT (SQ) ---
CT ABDOMEN PELVIS WITHOUT IV CONTRAST EXAM DATE: 03/02/2019 8:57 PM CDT HISTORY: Right flank pain. COMPARISON: None. TECHNIQUE: CT scan of the abdomen and pelvis was performed without IV contrast. This exam was performed according to our departmental dose-optimization program, which includes automated exposure control, adjustment of the mA and/or kV according to patient size and/or use of iterative reconstruction technique. FINDINGS: The lung bases are clear. No pleural or pericardial effusions. There is no hiatal hernia. The liver, spleen, pancreas, gallbladder, adrenal glands, and kidneys are unremarkable. No urinary stones are seen. The pelvic organs are also unremarkable. No small bowel obstruction. The appendix is normal. There is no evidence of diverticulitis. No intraperitoneal free fluid or free air is identified. The aorta is normal caliber. No acute bony findings are seen. There is no pathologic body wall hernia. IMPRESSION: No acute abdominal or pelvic pathology.
[2019-03-02 23:08] VITALS: BP 97/59
--- NOTE | 2019-03-03 00:55 | EKG REPORT ---
SEVERITY:- BORDERLINE ECG - SINUS RHYTHM BORDERLINE T ABNORMALITIES, ANTERIOR LEADS : Confirmed by: Blanca Avery 03-Mar-2019 00:54:42
== END 2019-03-02 23:16 | disposition home or self-care (01) ==
LOC: ER 14:52
DX: N10 Acute pyelonephritis (principal); R10.9 Unspecified abdominal pain; R35.0 Frequency of micturition; R39.15 Urgency of urination; R50.9 Fever, unspecified; F17.200 Nicotine dependence, unspecified, uncomplicated
CPT/HCPCS: 93005; 99284; 96361; 96375; 96365; 36415; 87040; 87086; 84703; 85025; 85610; 87088; 80053; 81001; 87186; 83605; 71046; 74176; 93010; J2270; J0696; J2405; J7030

== ENCOUNTER 2019-03-27 20:32 | Emergency (ER) | payer OTHER ==
[2019-03-27] MEDS ORDERED: FAMOTIDINE 20 MG TABLET PO ONE (21:44)
[2019-03-27] MEDS ORDERED: DIPHENHYDRAMINE HCL 50 MG CAPSULE PO ONE (21:44)
--- NOTE | 2019-03-27 21:44 | ER Document Report ---
ED Medical Screen (RME) - General Chief Complaint: Allergic Reaction Stated Complaint: POSSIBLE ALLERGIC REACTION Time Seen by Provider: 03/27/19 21:41 Mode of Arrival: Ambulatory Information source: Patient Notes: 23-year-old female presented to ED for allergic urticaria to the neck and chest down to below her breast line. She states that this started about 6 PM tonight. She is alert oriented respirations regular and unlabored speaking in full sentences. She has no shortness of breath or swelling to the throat. We will treat her with Benadryl and Pepcid and she will be seen by another provider. I have greeted and performed a rapid initial assessment of this patient. A comprehensive ED assessment and evaluation of the patient, analysis of test results and completion of medical decision making process will be conducted by an additional ED providers. TRAVEL OUTSIDE OF THE [place] IN LAST 30 DAYS: No - Related Data Allergies/Adverse Reactions: bees Allergy (Uncoded 03/27/19 21:38) sweet potaoes Allergy (Uncoded 03/27/19 21:38) Past Medical History Pulmonary Medical History: Reports: Hx Asthma - as a child Renal/ Medical History: Denies: Hx Peritoneal Dialysis Psychiatric Medical History: Reports: Hx Anxiety, Hx Borderline Personality Disorder, Hx Depression Traumatic Medical History: Reports: Hx Fractures - forearm, collarbone Past Surgical History: Reports: Hx Orthopedic Surgery - Immunizations Immunizations up to date: Yes Hx Diphtheria, Pertussis, Tetanus Vaccination: Yes Physical Exam - Vital signs Vitals: Temp Pulse Resp BP Pulse Ox 98.3 F 83 20 121/49 L 100 03/27/19 21:04 03/27/19 21:04 03/27/19 21:04 03/27/19 21:04 03/27/19 21:04 Course - Vital Signs Vital signs: Temp Pulse Resp BP Pulse Ox 98.3 F 83 20 121/49 L 100 03/27/19 21:04 03/27/19 21:04 03/27/19 21:04 03/27/19 21:04 03/27/19 21:04
[2019-03-28] MEDS ORDERED: PREDNISONE 20 MG TABLET PO ONE (01:15)
[2019-03-28 01:30] VITALS: BP 111/68
== END 2019-03-28 01:42 | disposition home or self-care (01) ==
LOC: ER 20:32
DX: T78.40XA Allergy, unspecified, initial encounter (principal); X58.XXXA Exposure to other specified factors, initial encounter; Z91.030 Bee allergy status; Z91.018 Allergy to other foods
CPT/HCPCS: 99282; J7512

== ENCOUNTER 2019-06-28 15:01 | Emergency (ER) | payer SELFPAY ==
[2019-06-28] MEDS ORDERED: KETOROLAC TROMETHAMINE 60 MG/2 ML SDV IM ONE (16:29)
[2019-06-28] MEDS ORDERED: METHOCARBAMOL 750 MG TABLET PO ONE (16:30)
[2019-06-28] MEDS ORDERED: HYDROCODONE/ACETAMINOPHEN 5-325 MG TABLET PO ONE (16:30)
--- NOTE | 2019-06-28 16:36 | ER Document Report ---
HPI - HPI Time Seen by Provider: 06/28/19 16:20 Pain Level: 5 Notes: Otherwise healthy 24-year-old female presents emergency department chief complaint of low back pain. Patient reports she felt a pop when she bent over just prior to arrival. She reports she has occasional "electric-like twinges". Denies any loss of control bowel or bladder, denies any saddle anesthesia or fevers. - CONSTITUTIONAL Constitutional: DENIES: Fever, Chills - REPRODUCTIVE LMP: 06/01/19 Reproductive: DENIES: : Past Medical History - General Information source: Patient - Social History Smoking Status: Former Smoker Chew tobacco use (# tins/day): No Frequency of alcohol use: None Drug Abuse: None Family History: Reviewed & Not Pertinent Patient has suicidal ideation: No Patient has homicidal ideation: No Pulmonary Medical History: Reports: Hx Asthma - as a child Renal/ Medical History: Denies: Hx Peritoneal Dialysis Psychiatric Medical History: Reports: Hx Anxiety, Hx Borderline Personality Disorder, Hx Depression Traumatic Medical History: Reports: Hx Fractures - forearm, collarbone Past Surgical History: Reports: Hx Orthopedic Surgery - Immunizations Immunizations up to date: Yes Hx Diphtheria, Pertussis, Tetanus Vaccination: Yes Vertical Provider Document - CONSTITUTIONAL Notes: PHYSICAL EXAMINATION: GENERAL: Well-appearing, well-nourished and in no acute distress. HEAD: Atraumatic, normocephalic. EYES: Pupils equal round and reactive to light, extraocular movements intact, conjunctiva are normal. ENT: Nares patent, oropharynx clear without exudates. Moist mucous membranes. NECK: Normal range of motion, supple without lymphadenopathy LUNGS: Breath sounds clear to auscultation bilaterally and equal. No wheezes rales or rhonchi. HEART: Regular rate and rhythm without murmurs ABDOMEN: Soft, nontender, nondistended abdomen. No guarding, no rebound. No masses appreciated. Female : deferred Musculoskeletal: Normal range of motion, no pitting or edema. No cyanosis. Tenderness to palpation of bilateral lumbar paraspinous region. No vertebral tenderness, step-off or deformity. NEUROLOGICAL: Cranial nerves grossly intact. Normal speech, normal gait. Normal sensory, motor exams PSYCH: Normal mood, normal affect. SKIN: Warm, Dry, normal turgor, no rashes or lesions noted. - INFECTION CONTROL TRAVEL OUTSIDE OF THE [place] IN LAST 30 DAYS: No Course - Re-evaluation Re-evalutation: Presentation of a well appearing patient complaining of acute on chronic back pain. No rapid progression of symptoms, systemic symptoms including fevers, chills, weight loss, history of recent bacterial infection, bilateral symptoms, numbness, weakness, difficulty walking, urinary retention or bowel incontinence, personal history of cancer, immunosuppression, diabetes, known AAA, or history of IV drug use. Exam is without point tenderness over vertebral bodies, pulsatile abdominal mass, and patient has symmetric and intact lower extremity strength, sensation, and reflexes without clonus. 2+ symmetric medial malleolar and dorsalis pedis pulses Based on history and physical, I have a very low suspicion of a concerning etiology of pain including epidural compression syndrome, spinal infection, transverse myelitis, malignancy, abdominal aortic aneurysm, renal colic, acute lower extremity claudication, neurogenic claudication, ankylosing spondylitis, or other intra-abdominal process. Due to absence of concerning risk factors in history and physical as well as absence of rapidly progressive, severe, or bilateral symptoms, will defer imaging at this point. - Vital Signs Vital signs: Temp Pulse Resp BP Pulse Ox 98.5 F 83 16 126/54 H 100 06/28/19 15:08 06/28/19 15:08 06/28/19 15:08 06/28/19 15:08 06/28/19 15:08 Discharge - Discharge Clinical Impression: Back pain Qualifiers: Back pain location: thoracic back pain Chronicity: acute Back pain laterality: unspecified Qualified Code(s): M54.6 - Pain in thoracic spine Condition: Stable Disposition: HOME, SELF-CARE Additional Instructions: You have been seen in the Emergency Department (ED) today for back pain. Your workup and exam have not shown any acute abnormalities and you are likely suffering from muscle strain or possible problems with your discs, but there is no treatment that will fix your symptoms at this time. Please take the muscle relaxer that has been prescribed as directed. Please also take ibuprofen 600 mg every 6 hours. You should also purchase a local lidocaine cream such as "aspercreme with lidocaine" and use per bottle instructions to the affected area. Apply heat to the area as often as you are able. Continue to keep active and avoid prolonged periods of bed rest. Please follow up with your doctor as soon as possible regarding today's ED visit and your back pain. Return to the ED for worsening back pain, fever, weakness or numbness of either leg, or if you develop either (1) an inability to urinate or have bowel movements, or (2) loss of your ability to control your bathroom functions (if you start having "accidents"), or if you develop other new symptoms that concern you.concern you. Prescriptions: Methocarbamol [Robaxin 750 mg Tablet] 750 mg PO Q4 #30 tablet Forms: Return to Work
[2019-06-28 17:11] VITALS: BP 111/67
== END 2019-06-28 17:15 | disposition home or self-care (01) ==
LOC: ER 15:01
DX: M54.6 Pain in thoracic spine (principal); M54.5 Low back pain
CPT/HCPCS: 99283; 96372; J1885; J3490